=== PATIENT | male | born 1995 | race Hispanic/Latino ===

== ENCOUNTER 2023-08-30 17:28 | Emergency (ER) | payer SELFPAY ==
[2023-08-30 17:30] VITALS: BP 153/88
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
== END 2023-08-30 18:54 | disposition home or self-care (01) ==
LOC: EMR 17:28
PROVIDERS: EMERGENCY PHYSICIAN Emergency Medicine; FAMILY PHYSICIAN Nurse Practitioner Adult Health
DX: S93.602A Unspecified sprain of left foot, initial encounter (principal); X50.1XXA Overexertion from prolonged static or awkward postures, initial encounter
CPT/HCPCS: 99283; 73630

== ENCOUNTER 2023-12-04 18:55 | Emergency (ER) | payer SELFPAY ==
[2023-12-04 19:06] VITALS: BP 143/84; BMI 33.1
--- NOTE | 2023-12-04 21:06 | EDRN ---
Patient and asking when they are going to be seen, did inform them a provider did sign up for him so should be in shortly, patient seems comfortable and talking with and laughing, will continue to monitor and update
--- NOTE | 2023-12-04 22:00 | EDRN ---
Patient ambulated to x-ray without difficulty
--- NOTE | 2023-12-04 22:35 | ED.GENMED ---
History of Present Illness
General
Chief Complaint: Musculo-Skeletal Complaint
Source: patient and spouse
Exam Limitations: none
Time Seen by Provider: 12/04/23 20:49
Nursing documentation reviewed up to this point in time: agreed with
Travel History
Have you had any contact with someone who has COVID-19?: No
Do you have any symptoms of coronavirus? Fever > 100 degrees, chills, cough, shortness of breath, sore throat, loss of taste or smell, muscle aches, or headache?: No
History of Present Illness
History of Present Illness:
28-year-old male presenting to the emergency department today with concerns of left-sided leg discomfort of the past 2 weeks made worse at work denies numbness weakness or additional concerns no injuries. Does work a physically intensive job.
Past History
Past History
ED Past Medical History: None
ED Past Surgical History: None
Social History
Tobacco: Non-smoker
Alcohol: None
Personal: Single
Living: with family
Employment: Employed
Review of Systems
Review of Systems
Allergies reviewed?: Yes
All Other Systems: ROS reviewed and negative except as documented in HPI and ROS
Phy Exam
Physical Exam
Physical Exam:
GENERAL: Alert , in no apparent distress
EYE: pupils equal and reactive
NECK: Supple, no significant adenopathy.
ENT: o/p clr, mmm.
CARDIAC: Regular rate and rhythm .
LUNGS: Clear breath sounds bilaterally, no acute respiratory distress, no wheezes/rales/rhonchi
ABDOMEN: Soft, without focal tenderness, no r/g, no cvat
NEUROLOGICAL: Alert and oriented, no focal neuro deficits
SKIN: Warm and dry, skin intact.
MUSCULOSKELETAL: No edema, well perfused.
PSYCH: Normal and appropriate interaction.
Course
Orders/Labs/Results
Orders:
Orders
06/09/24 21:53
Hip, Left 2-3 Views [CR Hip - LT w/wo Pel 2-3 Vw*] Urgent
Comment:
Reason For Exam: left hip pain
Include a pelvis x-ray?: Yes
Lumbar Spine, 2 or 3 View [CR Lumbar Spine 2 Or 3 Views] Urgent
Comment:
Reason For Exam: back pain
Vital Signs
Initial and Last Documented VS:
Initial Vital Signs
Temp Pulse Resp BP Pulse Ox
99.6 F 84 16 143/84 97
12/04/23 19:06 12/04/23 19:06 12/04/23 19:06 12/04/23 19:06 12/04/23 19:06
Last Documented Vital Signs
Temp Pulse Resp BP Pulse Ox
99.6 F 84 16 143/84 97
12/04/23 19:06 12/04/23 19:06 12/04/23 19:06 12/04/23 19:06 12/04/23 19:06
MDM/Problems Addressed
MDM/Problems Addressed:
28-year-old male presenting to the emergency department today with concerns of intermittent pain to the left leg only and carrying heavy loads. No current pain good range of motion and strength no signs of infection. Normal neurovascular
examination. 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 Patient vies for rest and follow-up with Ortho as needed. Return precautions given.
*Critical Care Note
Total Time (30-74mins, 75-104mins- exclusive of procedures): Not Applicable
ED Attending Note
-
Portions of this chart may have been created with voice recognition software.� Occasional wrong word or��sound alike� substitutions may have occurred due to the inherent limitations of voice recognition software.
Discharge Plan
Departure
Patient Disposition: Home (Routine Discharge)
Date of Disposition: 12/04/23
Time of Disposition: 22:36
Patient with high blood pressure during this ER visit?: No
Condition: Good
Covid-19: Not Applicable
Discharge Problem:
Leg pain
Instructions: Muscle and Bone Pain (DC)
Prescriptions:
No Action
ibuprofen [Advil] 200 MG tablet
400 mg PO BIDPRN PRN (Reason: fever, sore throat)
cefdinir [Omnicef] 300 MG capsule
300 mg PO BID Qty: 20 0RF
Referrals:
NONE,* [Family Provider] -
Krishna Adams MD [Active] - Follow up in 10 days
Activity Restrictions/Additional Instructions:
You came to the emergency department today with concerns of leg discomfort. You had x-rays that there was a finding of mild developmental dysplasia of the left hip but otherwise no emergent findings. Please follow-up with Ortho as needed return to
the emergency department for any worsening, new or concerning symptoms
Interventions
Interventions:
*Risk Screen - Suicide Last Done: 12/04/23 19:06
*General Assessment Last Done: 12/04/23 19:06
*Neglect/Abuse Screening Last Done: 12/04/23 19:06
ED- Fall Risk Assessment Last Done: 12/04/23 19:14
*ED COVID-19 Vaccine History Last Done: 12/04/23 19:06
ED-Musculoskeletal Assessment Last Done: 12/04/23 19:14
Discharge Date and Time
Print Language: MALAY
== END 2023-12-04 22:56 | disposition home or self-care (01) ==
LOC: EMR 18:55
PROVIDERS: EMERGENCY PHYSICIAN Emergency Medicine
DX: M79.605 Pain in left leg (principal)
CPT/HCPCS: 99283; 72100; 73502

== ENCOUNTER 2024-01-30 16:46 | Emergency (ER) | payer SELFPAY ==
[2024-01-30 16:54] VITALS: BP 131/76
--- NOTE | 2024-01-30 19:38 | ED.GENMED ---
History of Present Illness
General
Chief Complaint: Back Pain
Time Seen by Provider: 01/30/24 19:13
History of Present Illness
History of Present Illness:
28-year-old previously healthy male presents to the emergency department for evaluation of low back pain has been ongoing for the past 5 days. States it began after lifting a heavy object at work. Works for a [employer]. Has been taking Tylenol
and Motrin without relief. Does not have any lower extremity radiating symptoms or loss of bladder or bowel function. No falls or direct trauma.
Past History
Past History
ED Past Medical History: None
ED Past Surgical History: None
Social History
Tobacco: Non-smoker
Alcohol: None
Personal: Single
Living: with family
Employment: Employed
Review of Systems
Review of Systems
Allergies reviewed?: Yes
All Other Systems: ROS reviewed and negative except as documented in HPI and ROS
Phy Exam
Physical Exam
Physical Exam:
GEN: Well appearing, NAD, WDWN
HEENT: Oral mucosa moist, no scleral icterus
Cardiac: Regular rate
Lung: No respiratory distress, no tachypnea
MSK: No gross deformity or injuries. Lumbar range of motion is normal, there is reproducible tenderness to the left lumbar paraspinous musculature. Negative straight leg raise test bilaterally. Bilateral lower extremity strength is 5 out of 5 in
all clay and patellar reflexes are 2+ bilaterally
Skin: Good color, no pallor or jaundice, no rashes
Neuro: AO x3, moves all extremities freely
Psych: Calm, cooperative
Course
Vital Signs
Initial and Last Documented VS:
Initial Vital Signs
Temp Pulse Resp BP Pulse Ox
98.2 F 70 16 131/76 98
01/30/24 16:54 01/30/24 16:54 01/30/24 16:54 01/30/24 16:54 01/30/24 16:54
Last Documented Vital Signs
Temp Pulse Resp BP Pulse Ox
98.2 F 68 16 124/86 98
01/30/24 16:54 01/30/24 19:45 01/30/24 19:45 01/30/24 19:45 01/30/24 16:54
MDM/Problems Addressed
MDM/Problems Addressed:
Likely muscular strain, no clinical signs of disc herniation or fracture. No indication for imaging. Supportive care discussed, recommend occupational medicine follow-up for consideration of therapy if not improving
*Critical Care Note
Total Time (30-74mins, 75-104mins- exclusive of procedures): Not Applicable
ED Attending Note
-
Portions of this chart may have been created with voice recognition software.� Occasional wrong word or��sound alike� substitutions may have occurred due to the inherent limitations of voice recognition software.
Discharge Plan
Departure
Patient Disposition: Home (Routine Discharge)
Date of Disposition: 01/30/24
Time of Disposition: 19:40
Patient with high blood pressure during this ER visit?: No
Discharge Problem:
Acute lumbar myofascial strain
Instructions: Low Back Pain (DC)
Prescriptions:
New
meloxicam 15 mg tablet
15 mg PO DAILY Qty: 14 0RF
methocarbamol 750 mg tablet
750 - 1,500 mg PO Q8H PRN (Reason: muscle spasm) Qty: 20 0RF
No Action
ibuprofen [Advil] 200 MG tablet
400 mg PO BIDPRN PRN (Reason: fever, sore throat)
cefdinir [Omnicef] 300 MG capsule
300 mg PO BID Qty: 20 0RF
Referrals:
NONE,* [Family Provider] -
Stand Alone Forms: Return to Work
Activity Restrictions/Additional Instructions:
Es probable que patel dolor de espalda se deba a anuradha distensi�n muscular. [place] deber�a mejorar en 5 a 7 d�as, sin embargo, tome los medicamentos que le recet�. No tome ibuprofeno adicional. No tome metocarbamol cuando vaya a trabajar, ya que puede
cansarlo. [place] un seguimiento con la medicina ocupacional de patel trabajo o con atenci�n de urgencia si el dolor no mejora.
Interventions
Interventions:
*General Assessment Last Done: 01/30/24 20:01
*Nursing Disposition Last Done: 01/30/24 20:01
ED-Musculoskeletal Assessment Last Done: 01/30/24 19:45
Discharge Date and Time
Discharge Date/Time: 01/30/24 20:01
Print Language: ZAMBIAN
[2024-01-30 19:45] VITALS: BP 124/86
== END 2024-01-30 20:01 | disposition home or self-care (01) ==
LOC: EMR 16:46
PROVIDERS: EMERGENCY PHYSICIAN Student in an Organized Health Care Education/Training Program
DX: S39.012A Strain of muscle, fascia and tendon of lower back, initial encounter (principal); X50.0XXA Overexertion from strenuous movement or load, initial encounter; Y93.H2 Activity, gardening and landscaping; Y92.89 Other specified places as the place of occurrence of the external cause; Y99.0 Civilian activity done for income or pay
CPT/HCPCS: 99283

== ENCOUNTER → 2024-10-04 16:07 | Outpatient (REF) | payer OTHER, SELFPAY ==
[2024-10-05 10:18] LABS: Glycohemoglobin (HgbA1c) 4.9 % (4.0-5.6)
== END ==
LOC: CLINIC 16:07
PROVIDERS: ATTENDING PHYSICIAN Internal Medicine
DX: Z13.1 Encounter for screening for diabetes mellitus (principal)
CPT/HCPCS: 36415; 83036